=== PATIENT | male | born 1955 | race Caucasian/White ===

== ENCOUNTER 2022-11-19 12:57 | Inpatient (IN) | payer BC ==
[~2022-11-19] VITALS: Ht 177.8 cm; Wt 120.5 kg
[2022-11-19] VITALS (15 sets, daily range): BP systolic 91–141; BP diastolic 40–115
[2022-11-19] MEDS ORDERED: octreotide 100mcg/1 ml ampule IV ONE (13:20)
[2022-11-19] MEDS ORDERED: octreotide inj. 1,250 MCG in normal saline 250ml IV soln 250 ML IV SCH (13:20)
[2022-11-19] MEDS ORDERED: normal saline 1000ml 1,000 ML IV ONE ×2 (13:25)
[2022-11-19] MEDS ORDERED: IDARUCIZUMAB 2.5 GM/50 ML IV SCH (13:30)
[2022-11-19] MEDS ORDERED: ondansetron/PF 4mg/2ml inj IV ONE (13:35)
[2022-11-19 13:45] LABS: BASOPHILS % (AUTO) 0.1 % (0-1); EOSINOPHILS % (AUTO) 0.2 % (0-6); LYMPHOCYTES # (AUTO) 0.9 X10'3 (1.1-4.8); MEAN CORPUSCULAR HEMOGLOBIN 35.1 PG (27.0-31.0); MEAN CORPUSCULAR VOLUME 106.3 FL (78-98); MEAN PLATELET VOLUME 6.6 FL (7.4-10.4); MONOCYTES # (AUTO) 1.1 X10'3 (0-0.9); MONOCYTES % (AUTO) 9.1 % (2-12); NEUTROPHILS # (AUTO) 9.6 X10'3 (1.8-7.7); NEUTROPHILS % (AUTO) 82.6 % (42-75); PLATELET COUNT 202 X10'3 (140-440); RED BLOOD COUNT 1.76 X10'6 (4.70-6.10); RED CELL DISTRIBUTION WIDTH 17.4 % (11.5-14.5); WHITE BLOOD COUNT 11.6 X10'3 (4.5-11.0)
[2022-11-19 13:48] LABS: HEMATOCRIT 18.7 % (42.0-52.0); HEMOGLOBIN 6.2 g/dl (14.0-17.9)
[2022-11-19] MEDS ORDERED: octreotide inj. 1,250 MCG in normal saline 250ml IV soln 243.75 ML IV SCH (13:51)
--- NOTE | 2022-11-19 13:59 | NUR ---
ECHO AT BEDSIDE, JON SELLERS IV AT BEDSIDE ULTRASOUND.
[2022-11-19] MEDS: IDARUCIZUMAB 2.5 GM/50 ML IV SCH ×2 (14:01→14:10)
[2022-11-19 14:03] LABS: ALANINE AMINOTRANSFERASE 70 U/L (12-78); ALBUMIN 1.9 G/DL (3.4-5.0); ALKALINE PHOSPHATASE 173 IU/L (46-116); ANION GAP 8 (8-16); ASPARTATE AMINO TRANSFERASE 237 U/L (10-37); BILIRUBIN,TOTAL 4.1 MG/DL (0.1-1.0); BLOOD UREA NITROGEN 81 MG/DL (7-18); BUN/CREATININE RATIO 38.8 (10.0-20.0); CALCIUM 8.2 MG/DL (8.5-10.1); CHLORIDE 104 MMOL/L (99-107); CREATININE 2.09 MG/DL (0.60-1.10); GLUCOSE 125 MG/DL (70-104); POTASSIUM 4.9 MMOL/L (3.5-5.1); SODIUM 137 MMOL/L (135-145); TOTAL CARBON DIOXIDE 25.2 MMOL/L (24-32); eGFR 32 ML/MIN
[2022-11-19 14:07] LABS: ALBUMIN/GLOBULIN RATIO 0.5 (1.1-1.5); TOTAL PROTEIN 5.6 G/DL (6.4-8.2)
[2022-11-19] MEDS ORDERED: fentaNYL/PF 50MCG/1 ML 2ML syringe ONE (14:17)
[2022-11-19] MEDS ORDERED: LIDOcaine Viscous 15ml cup ONE ×2 (14:18→16:49)
[2022-11-19] MEDS ORDERED: MIDAZolam 1 MG/ML 5ML VIAL ONE (14:18)
--- NOTE | 2022-11-19 14:30 | NUR ---
PT TAKEN TO GI LAB AT THIS TIME. BLOOD CONSENT COPY GIVEN TO RN AND NOTIFIED THAT FIRST UNIT OF BLOOD IS READY FOR PT. RN STATES THAT THEY WILL BEGIN BLOOD IN GI LAB.
[2022-11-19] MEDS ORDERED: haloperidol lactate 5mg/ml inj IM PRN (15:35)
[2022-11-19] MEDS ORDERED: mag hydrox/Alum hydrox/simeth 30ml oral suspension PO PRN (15:35)
[2022-11-19] MEDS ORDERED: haloperidol 5mg tablet PO PRN (15:35)
[2022-11-19] MEDS ORDERED: acetaminophen 325mg tablet PO PRN (15:35)
[2022-11-19] MEDS ORDERED: HYDROcodone/acetaminophen 10/325mg tab PO PRN (15:35)
[2022-11-19] MEDS ORDERED: HYDROcodone/acetaminophen 5mg/325mg tablet PO PRN (15:35)
[2022-11-19] MEDS ORDERED: ondansetron/PF 4mg/2ml inj IV PRN (15:35)
[2022-11-19] MEDS ORDERED: potassium Cl 40MEQ/1/2NS 520ml 520 ML IV PRN (15:35)
[2022-11-19] MEDS ORDERED: magnesium 4gm in 100ml NS 100 ML IV PRN (15:35)
[2022-11-19] MEDS ORDERED: potassium Cl 20 mEq SR tablet PO PRN ×2 (15:35)
[2022-11-19] MEDS: pantoprazole 40MG/NS 100ML BAG 100 ML IV SCH ×2 (16:00→21:28)
[2022-11-19] MEDS ORDERED: pantoprazole 40MG/NS 100ML BAG 100 ML IV SCH (16:00)
[2022-11-19] MEDS ORDERED: phytonadione inj. 10 MG in normal saline 100ml IV soln 100 ML IV STA (16:04)
[2022-11-19] MEDS ORDERED: LISI10TA27 PO (17:24)
[2022-11-19] MEDS ORDERED: ALLO100T PO (17:24)
[2022-11-19] MEDS ORDERED: AMIO200T61 PO (17:24)
[2022-11-19] MEDS ORDERED: DABI150C PO (17:24)
[2022-11-19] MEDS ORDERED: FURO40TA4 PO (17:24)
[2022-11-19] MEDS ORDERED: ALBU17AE26 IH (17:24)
[2022-11-19] MEDS ORDERED: IPRA3AMP31 NEB (17:24)
[2022-11-19] MEDS ORDERED: POTA-207 PO (17:24)
[2022-11-19] MEDS ORDERED: IBUP-1984 PO (17:24)
[2022-11-19] MEDS ORDERED: octreotide inj. 500 MCG in normal saline 100ml IV soln 97.5 ML IV SCH (17:25)
--- NOTE | 2022-11-19 17:53 | NUR ---
PT JUST RETURNED TO ED RM 1 FROM GI LAB. PT IS ALERT AND ORIENTED. VSS. STILL PENDING 1 UNIT OF BLOOD. WILL CONTINUE TO MOITOR.
--- NOTE | 2022-11-19 19:48 | NUR ---
Patient in room ED 1. I have received report from LUIS Wren and had the opportunity to ask questions and assume patient care.
[2022-11-19] MEDS ORDERED: docusate sod 100mg capsule PO SCH (20:00)
[2022-11-19] MEDS: K and/or MAG REPLACEMENT MC SCH (20:00)
[2022-11-19] MEDS: thiamine 100mg tablet PO SCH (21:29)
[2022-11-20 00:12] LABS: URINE AMPHETAMINE SCREEN NEGATIVE (Neg); URINE BARBITUATE SCREEN NEGATIVE (Neg); URINE BENZODIAZEPINES SCREEN POSITIVE (Neg); URINE CANNABINOID SCREEN NEGATIVE (Neg); URINE COCAINE SCREEN NEGATIVE (Neg); URINE METHADONE SCREEN NEGATIVE (Neg); URINE OPIATE SCREEN NEGATIVE (Neg); URINE PHENCYCLIDINE SCREEN NEGATIVE (Neg)
[2022-11-20 00:43] LABS: HEMATOCRIT 22.3 % (42.0-52.0); HEMOGLOBIN 7.7 g/dl (14.0-17.9); MEAN CORPUSCULAR HGB CONC 34.6 g/dL (33.0-36.5); MEAN CORPUSCULAR VOLUME 98.5 FL (78-98); MEAN PLATELET VOLUME 6.8 FL (7.4-10.4); PLATELET COUNT 182 X10'3 (140-440); RED BLOOD COUNT 2.27 X10'6 (4.70-6.10); RED CELL DISTRIBUTION WIDTH 21.9 % (11.5-14.5); WHITE BLOOD COUNT 9.5 X10'3 (4.5-11.0)
[2022-11-20 02:00] VITALS: BP 96/38
[2022-11-20] MEDS: pantoprazole 40MG/NS 100ML BAG 100 ML IV SCH ×5 (02:35→20:51)
[2022-11-20 03:39] LABS: CLARITY,URINE CLEAR (Clear); GLUCOSE, URINE NEGATIVE (Neg); KETONES,URINE NEGATIVE (Neg); LEUKOCYTE ESTERASE ,URINE NEGATIVE (Neg); NITRITES, URINE NEGATIVE (Neg); OCCULT BLOOD,URINE NEGATIVE (Neg); PH,URINE 6.5 (4.8-8.0); PROTEIN,URINE NEGATIVE (Neg)
[2022-11-20 04:03] LABS: COLOR,URINE DARK YELLOW (Yellow); UA COLLECTION TYPE NON-SPECIFIED
[2022-11-20 06:00] VITALS: BP 104/46
--- NOTE | 2022-11-20 06:43 | NUR ---
Problems reprioritized. Patient report given, questions answered & plan of care reviewed with LUIS Phelps.
[2022-11-20 06:50] LABS: BASOPHILS % (AUTO) 0.2 % (0-1); EOSINOPHILS # (AUTO) 0.1 X10'3 (0-0.9); EOSINOPHILS % (AUTO) 0.6 % (0-6); LYMPHOCYTES # (AUTO) 0.8 X10'3 (1.1-4.8); LYMPHOCYTES % (AUTO) 9.5 % (21-51); MEAN CORPUSCULAR HEMOGLOBIN 34.6 PG (27.0-31.0); MEAN CORPUSCULAR HGB CONC 34.6 g/dL (33.0-36.5); MEAN CORPUSCULAR VOLUME 99.9 FL (78-98); MEAN PLATELET VOLUME 6.8 FL (7.4-10.4); MONOCYTES # (AUTO) 0.8 X10'3 (0-0.9); MONOCYTES % (AUTO) 8.8 % (2-12); NEUTROPHILS % (AUTO) 80.9 % (42-75); PLATELET COUNT 176 X10'3 (140-440); RED CELL DISTRIBUTION WIDTH 22.2 % (11.5-14.5); WHITE BLOOD COUNT 8.6 X10'3 (4.5-11.0)
--- NOTE | 2022-11-20 06:52 | NUR ---
Patient in room ORTHO 4017. I have received report from Nicole and had the opportunity to ask questions and assume patient care.
[2022-11-20 06:58] LABS: ALANINE AMINOTRANSFERASE 60 U/L (12-78); ALBUMIN 1.9 G/DL (3.4-5.0); ALKALINE PHOSPHATASE 160 IU/L (46-116); ANION GAP 7 (8-16); ASPARTATE AMINO TRANSFERASE 166 U/L (10-37); BILIRUBIN,TOTAL 4.5 MG/DL (0.1-1.0); BLOOD UREA NITROGEN 71 MG/DL (7-18); BUN/CREATININE RATIO 39.9 (10.0-20.0); CALCIUM 8.4 MG/DL (8.5-10.1); CHLORIDE 107 MMOL/L (99-107); CREATININE 1.78 MG/DL (0.60-1.10); GLUCOSE 115 MG/DL (70-104); LIPASE 712 U/L (73-393); MAGNESIUM 2.1 MG/DL (1.5-2.4); POTASSIUM 4.8 MMOL/L (3.5-5.1); SODIUM 139 MMOL/L (135-145); TOTAL CARBON DIOXIDE 25.1 MMOL/L (24-32); eGFR 38 ML/MIN
[2022-11-20 07:00] LABS: ALBUMIN/GLOBULIN RATIO 0.5 (1.1-1.5); PHOSPHORUS 3.9 MG/DL (2.3-4.5); TOTAL PROTEIN 5.8 G/DL (6.4-8.2)
[2022-11-20] MEDS ORDERED: furosemide 40mg tablet PO SCH (08:00)
[2022-11-20] MEDS ORDERED: lisinopril 10 MG tablet PO SCH (08:00)
[2022-11-20] MEDS: thiamine 100mg tablet PO SCH ×3 (08:00→20:51)
[2022-11-20] MEDS: K and/or MAG REPLACEMENT MC SCH ×2 (08:00→19:49)
[2022-11-20 08:07] LABS: ANISOCYTOSIS 3+; HYPOCHROMASIA 1+; PLATELET ESTIMATE NORMAL
[2022-11-20 08:08] LABS: POLYCHROMASIA 2+; TARGET CELLS 1+
[2022-11-20 10:00] VITALS: BP 102/52
--- NOTE | 2022-11-20 10:44 | NUR ---
Student documentation: Kim student at [facility] have reviewed and agree with all interventions,medication administration per hospital policy, and assessments performed and documented by the student.
[2022-11-20] MEDS ORDERED: furosemide 40mg/4ml inj IV ONE (12:05)
--- NOTE | 2022-11-20 13:05 | NUR ---
All meds given late, NPO status changed over the course of the morning more than twice.
[2022-11-20] MEDS: octreotide inj. 500 MCG in normal saline 100ml IV soln 97.5 ML IV SCH (13:08)
[2022-11-20] MEDS: allopurinol 100mg tablet PO SCH (13:08)
[2022-11-20] MEDS: multivitamins, therapeutics tablet PO SCH (13:08)
[2022-11-20 13:10] VITALS: BP 90/38
[2022-11-20 18:00] VITALS: BP 105/46
--- NOTE | 2022-11-20 18:03 | NUR ---
Malnutrition consult: Pt reports 14-23 lb wt loss with decreased appetite per malnutrition risk screen with RN. Pt seen at bedside, reports unknown quantity of wt loss over the last 4-5 months d/t decreased appetite with unknown etiology though does report feeling sick with SOB for about three months. Pt states UBW is 295 lbs. Unfortunately current wt is not scaled and no scaled wt hx in EMR. Patient's diet was advanced to clear liquids from NPO and pt with 100% PO intake of first meal. No visible fat or muscle wasting appreciated. Per EMR pt with no decrease in muscle strength though pt does appear weak. Pt documented with 4+ edema to bilat ankles. Pt currently lacks a minimum of two criteria for malnutrition though at a high risk given EtOH hx. Pt receiving routine Thiamine, Folic acid, and MVI. Pt denies food allergies or food preferences. Pt does report difficulty chewing and requests soft to chew chopped food once diet is advanced, d/w dietary. Pt provided with RD contact information and encouraged to reach out if needed. Will continue to follow and further monitor qualifying criteria for malnutrition. Recommendations: 1) Advance to SB6 diet as medically indicated per pt preference d/t difficulty chewing 2) Routine Thiamine, Folic acid, and MVI for EtOH 3) Bowel care per physician 4) Scaled weight this admit; subsequent weekly scaled weights Addendum: 11/20/22 at [address] Amended: Links added.
--- NOTE | 2022-11-20 18:39 | NUR ---
Problems reprioritized. Patient report given, questions answered & plan of care reviewed with Nicole.
--- NOTE | 2022-11-20 19:06 | NUR ---
Patient in room ORTHO 4017. I have received report from LUIS Phelps and had the opportunity to ask questions and assume patient care.
[2022-11-20] MEDS: LORazepam 2 mg/ml vial IV PRN (21:09)
[2022-11-21] MEDS: pantoprazole 40MG/NS 100ML BAG 100 ML IV SCH ×5 (01:55→23:17)
[2022-11-21 02:00] VITALS: BP 111/55
[2022-11-21] MEDS: LORazepam 2 mg/ml vial IV PRN ×2 (02:01→10:21)
[2022-11-21 06:00] VITALS: BP 101/55
--- NOTE | 2022-11-21 06:04 | NUR ---
Problems reprioritized. Patient report given, questions answered & plan of care reviewed with SERENITY Angel and LUIS White
--- NOTE | 2022-11-21 06:36 | NUR ---
Patient in room ORTHO 4017. I have received report from LUIS Rivera and had the opportunity to ask questions and assume patient care.
[2022-11-21] MEDS: octreotide inj. 500 MCG in normal saline 100ml IV soln 97.5 ML IV SCH (06:39)
[2022-11-21 06:55] LABS: BASOPHILS % (AUTO) 0.4 % (0-1); EOSINOPHILS # (AUTO) 0.2 X10'3 (0-0.9); EOSINOPHILS % (AUTO) 2.4 % (0-6); HEMATOCRIT 22.3 % (42.0-52.0); HEMOGLOBIN 7.5 g/dl (14.0-17.9); LYMPHOCYTES # (AUTO) 1.1 X10'3 (1.1-4.8); LYMPHOCYTES % (AUTO) 13.2 % (21-51); MEAN CORPUSCULAR HEMOGLOBIN 34.2 PG (27.0-31.0); MEAN CORPUSCULAR HGB CONC 33.6 g/dL (33.0-36.5); MEAN PLATELET VOLUME 6.8 FL (7.4-10.4); MONOCYTES # (AUTO) 0.9 X10'3 (0-0.9); MONOCYTES % (AUTO) 11.2 % (2-12); NEUTROPHILS % (AUTO) 72.8 % (42-75); PLATELET COUNT 156 X10'3 (140-440); RED BLOOD COUNT 2.19 X10'6 (4.70-6.10); RED CELL DISTRIBUTION WIDTH 22.5 % (11.5-14.5); WHITE BLOOD COUNT 8.3 X10'3 (4.5-11.0)
[2022-11-21 07:06] LABS: ALANINE AMINOTRANSFERASE 54 U/L (12-78); ALBUMIN 1.9 G/DL (3.4-5.0); ALKALINE PHOSPHATASE 143 IU/L (46-116); ANION GAP 11 (8-16); ASPARTATE AMINO TRANSFERASE 132 U/L (10-37); BILIRUBIN,TOTAL 3.9 MG/DL (0.1-1.0); BLOOD UREA NITROGEN 58 MG/DL (7-18); BUN/CREATININE RATIO 34.9 (10.0-20.0); CHLORIDE 107 MMOL/L (99-107); CREATININE 1.66 MG/DL (0.60-1.10); GLUCOSE 108 MG/DL (70-104); LIPASE 593 U/L (73-393); MAGNESIUM 1.9 MG/DL (1.5-2.4); POTASSIUM 4.6 MMOL/L (3.5-5.1); SODIUM 143 MMOL/L (135-145); TOTAL CARBON DIOXIDE 24.9 MMOL/L (24-32); eGFR 42 ML/MIN
[2022-11-21 07:11] LABS: ALBUMIN/GLOBULIN RATIO 0.5 (1.1-1.5); PHOSPHORUS 4.5 MG/DL (2.3-4.5); TOTAL PROTEIN 5.7 G/DL (6.4-8.2)
[2022-11-21] MEDS ORDERED: lisinopril 10 MG tablet PO SCH (08:00)
[2022-11-21] MEDS: K and/or MAG REPLACEMENT MC SCH ×2 (08:00→20:00)
[2022-11-21] MEDS: multivitamins, therapeutics tablet PO SCH (08:25)
[2022-11-21] MEDS: thiamine 100mg tablet PO SCH ×3 (08:25→19:51)
[2022-11-21] MEDS: allopurinol 100mg tablet PO SCH (08:25)
[2022-11-21 10:00] VITALS: BP 121/63
[2022-11-21] MEDS: lisinopril 5mg tablet PO SCH (10:21)
[2022-11-21 14:00] VITALS: BP 100/55
[2022-11-21] MEDS ORDERED: LORazepam 2 mg/ml vial IV PRN (15:35)
[2022-11-21] MEDS ORDERED: LORazepam 1 MG tablet PO PRN (15:35)
[2022-11-21 18:00] VITALS: BP 118/44
--- NOTE | 2022-11-21 18:16 | NUR ---
Problems reprioritized. Patient report given, questions answered & plan of care reviewed with SERENITY Nagel.
--- NOTE | 2022-11-21 18:17 | NUR ---
[employer] documentation: I have reviewed and agree with all interventions, assessments performed and documented by Stanley BENTON. [employer] Medication Administration: For this medication-pass time frame, all medication were reviewed, dispensed, administered and documented per hospital policy by Stanley BENTON.
[2022-11-21 22:00] VITALS: BP 123/48
[2022-11-22] MEDS: pantoprazole 40MG/NS 100ML BAG 100 ML IV SCH ×4 (02:49→16:45)
[2022-11-22] MEDS: octreotide inj. 500 MCG in normal saline 100ml IV soln 97.5 ML IV SCH ×2 (02:49→21:23)
[2022-11-22 06:00] VITALS: BP 114/51
[2022-11-22 07:24] LABS: BASOPHILS % (AUTO) 0.6 % (0-1); EOSINOPHILS # (AUTO) 0.2 X10'3 (0-0.9); EOSINOPHILS % (AUTO) 3.5 % (0-6); HEMATOCRIT 23.2 % (42.0-52.0); HEMOGLOBIN 7.7 g/dl (14.0-17.9); LYMPHOCYTES # (AUTO) 0.9 X10'3 (1.1-4.8); LYMPHOCYTES % (AUTO) 13.6 % (21-51); MEAN CORPUSCULAR HEMOGLOBIN 34.1 PG (27.0-31.0); MEAN CORPUSCULAR HGB CONC 33.2 g/dL (33.0-36.5); MEAN CORPUSCULAR VOLUME 102.9 FL (78-98); MEAN PLATELET VOLUME 6.9 FL (7.4-10.4); MONOCYTES # (AUTO) 0.8 X10'3 (0-0.9); MONOCYTES % (AUTO) 12.2 % (2-12); NEUTROPHILS # (AUTO) 4.8 X10'3 (1.8-7.7); NEUTROPHILS % (AUTO) 70.1 % (42-75); PLATELET COUNT 148 X10'3 (140-440); RED BLOOD COUNT 2.25 X10'6 (4.70-6.10); RED CELL DISTRIBUTION WIDTH 22.2 % (11.5-14.5); WHITE BLOOD COUNT 6.9 X10'3 (4.5-11.0)
[2022-11-22 07:45] LABS: ALANINE AMINOTRANSFERASE 50 U/L (12-78); ALBUMIN 1.8 G/DL (3.4-5.0); ALBUMIN/GLOBULIN RATIO 0.5 (1.1-1.5); ALKALINE PHOSPHATASE 137 IU/L (46-116); ANION GAP 6 (8-16); ASPARTATE AMINO TRANSFERASE 107 U/L (10-37); BILIRUBIN,TOTAL 4.1 MG/DL (0.1-1.0); BLOOD UREA NITROGEN 54 MG/DL (7-18); CALCIUM 7.8 MG/DL (8.5-10.1); CHLORIDE 104 MMOL/L (99-107); CREATININE 1.74 MG/DL (0.60-1.10); GLUCOSE 92 MG/DL (70-104); LIPASE 792 U/L (73-393); MAGNESIUM 1.9 MG/DL (1.5-2.4); PHOSPHORUS 4.2 MG/DL (2.3-4.5); POTASSIUM 4.4 MMOL/L (3.5-5.1); SODIUM 135 MMOL/L (135-145); TOTAL CARBON DIOXIDE 25.3 MMOL/L (24-32); TOTAL PROTEIN 5.6 G/DL (6.4-8.2); eGFR 39 ML/MIN
[2022-11-22] MEDS: K and/or MAG REPLACEMENT MC SCH ×2 (07:45→20:00)
[2022-11-22] MEDS: thiamine 100mg tablet PO SCH ×3 (07:46→20:17)
[2022-11-22] MEDS: allopurinol 100mg tablet PO SCH (07:46)
[2022-11-22] MEDS: multivitamins, therapeutics tablet PO SCH (07:46)
[2022-11-22] MEDS: lisinopril 5mg tablet PO SCH (07:46)
[2022-11-22 10:00] VITALS: BP 119/44
--- NOTE | 2022-11-22 12:21 | NUR ---
Per EMR pt with a low Aman of 11. Pt documented with bilat ankles 4+ edema though no wounds identified. Pt currently with 100% PO intake on a clear liquid diet. Will continue to follow. Addendum: 11/22/22 at [address] Amended: Links added.
--- NOTE | 2022-11-22 14:08 | NUR ---
PRESSURE ULCER EDUCATION: DEFINITION: A pressure ulcer is an area of skin that breaks down when you stay in one position too long. The constant pressure against the skin reduces the blood flow to that area and the affected tissue dies. CAUSES: "Being bedridden or in a wheelchair "Fragile skin "Having a chronic condition, such as diabetes or vascular disease "Inability to move certain parts of your body without assistance "Older age "Incontinence of urine or stool SYMPTOMS: "A reddened area that DOES NOT turn white when pressed on - this can be the beginning of a pressure ulcer "A blister, deep sore or a crater - these can be advanced pressure ulcers FIRST AID: "Relieve the pressure on this area "Keep the area clean and dry "Call your primary doctor if you see any of the above symptoms "DO NOT massage the area "DO NOT use a donut shaped or ring shaped pillow- these actually interfere with the blood flow and cause complications PREVENTION: "Check for pressure ulcers everyday "Change position at least every two hours to relieve pressure "Use items that help relieve pressure- pillows, sheepskin, foam padding, and powders. "Keep skin clean and dry "Eat healthy well balanced meals "Exercise daily IF YOU SEE ANY OF THESE SYMPTOMS WHILE IN THE HOSPITAL - TELL YOUR NURSE IMMEDIATELY. IF YOU SEE ANY OF THESE SYMPTOMS WHILE AT HOME OR HAVE ANY QUESTIONS OR CONCERNS ABOUT PRESSURE ULCERS - CALL YOUR PRIMARY DOCTOR IMMEDIATELY. Addendum: 11/22/22 at 1408 by Yeimy Garnett RN Amended: Links added.
--- NOTE | 2022-11-22 15:01 | NUR ---
Received order for consult. Met with patient in regards to substance use and to see if patient was interested in resources for treatment options. Patient has resources at home. He feels that he has enough support and this has scared him enough to where he will not drink again he said.
[2022-11-22 18:00] VITALS: BP 126/54
--- NOTE | 2022-11-22 18:08 | NUR ---
Problems reprioritized. Patient report given, questions answered & plan of care reviewed with Robe BENTON.
--- NOTE | 2022-11-22 20:00 | NUR ---
Agree with Bri Méndez LVN Physical assessment.
[2022-11-22 22:00] VITALS: BP 111/37
[2022-11-23] MEDS: pantoprazole 40MG/NS 100ML BAG 100 ML IV SCH ×6 (01:00→23:13)
[2022-11-23 02:00] VITALS: BP 117/45
[2022-11-23 06:00] VITALS: BP 115/47
--- NOTE | 2022-11-23 06:52 | NUR ---
Patient in room ORTHO 4017. I have received report from Robe and had the opportunity to ask questions and assume patient care.
[2022-11-23 08:00] VITALS: BP 125/89
[2022-11-23] MEDS: K and/or MAG REPLACEMENT MC SCH ×2 (08:00→19:30)
[2022-11-23] MEDS: multivitamins, therapeutics tablet PO SCH (08:24)
[2022-11-23] MEDS: thiamine 100mg tablet PO SCH ×3 (08:25→21:04)
[2022-11-23] MEDS: lisinopril 5mg tablet PO SCH (08:25)
[2022-11-23] MEDS: allopurinol 100mg tablet PO SCH (08:26)
[2022-11-23 09:19] LABS: BASOPHILS % (AUTO) 0.5 % (0-1); EOSINOPHILS # (AUTO) 0.3 X10'3 (0-0.9); HEMATOCRIT 24.8 % (42.0-52.0); HEMOGLOBIN 8.2 g/dl (14.0-17.9); LYMPHOCYTES # (AUTO) 0.7 X10'3 (1.1-4.8); LYMPHOCYTES % (AUTO) 8.7 % (21-51); MEAN CORPUSCULAR HEMOGLOBIN 33.8 PG (27.0-31.0); MEAN CORPUSCULAR VOLUME 102.4 FL (78-98); MEAN PLATELET VOLUME 7.1 FL (7.4-10.4); MONOCYTES # (AUTO) 1.1 X10'3 (0-0.9); MONOCYTES % (AUTO) 12.8 % (2-12); NEUTROPHILS # (AUTO) 6.4 X10'3 (1.8-7.7); PLATELET COUNT 165 X10'3 (140-440); RED BLOOD COUNT 2.42 X10'6 (4.70-6.10); RED CELL DISTRIBUTION WIDTH 21.9 % (11.5-14.5); WHITE BLOOD COUNT 8.6 X10'3 (4.5-11.0)
[2022-11-23 09:51] LABS: ALANINE AMINOTRANSFERASE 53 U/L (12-78); ALBUMIN 1.6 G/DL (3.4-5.0); ALBUMIN/GLOBULIN RATIO 0.4 (1.1-1.5); ALKALINE PHOSPHATASE 148 IU/L (46-116); ANION GAP 11 (8-16); ASPARTATE AMINO TRANSFERASE 115 U/L (10-37); BILIRUBIN,TOTAL 5.2 MG/DL (0.1-1.0); BLOOD UREA NITROGEN 46 MG/DL (7-18); BUN/CREATININE RATIO 29.3 (10.0-20.0); CALCIUM 8.4 MG/DL (8.5-10.1); CHLORIDE 102 MMOL/L (99-107); CREATININE 1.57 MG/DL (0.60-1.10); GLUCOSE 97 MG/DL (70-104); LIPASE 937 U/L (73-393); MAGNESIUM 2.1 MG/DL (1.5-2.4); PHOSPHORUS 3.9 MG/DL (2.3-4.5); POTASSIUM 4.4 MMOL/L (3.5-5.1); SODIUM 131 MMOL/L (135-145); TOTAL CARBON DIOXIDE 18.4 MMOL/L (24-32); TOTAL PROTEIN 5.9 G/DL (6.4-8.2); eGFR 44 ML/MIN
[2022-11-23 10:00] VITALS: BP 118/52
--- NOTE | 2022-11-23 10:21 | NUR ---
as clinical instructor, i reviewed student nurse physical assessment of pt
--- NOTE | 2022-11-23 14:04 | NUR ---
PAGER ID: [phone] MESSAGE: [phone]:Gunnar Villalobos: Pt c/o severe pain to R knee, unable to touch it or move. Please call [phone] Received new order for xray and tramadol 50mg once for pain
[2022-11-23] MEDS ORDERED: traMADol 50MG tablet PO ONE ×2 (14:05→14:10)
[2022-11-23] MEDS ORDERED: LORazepam 2 mg/ml vial IV PRN (15:35)
[2022-11-23] MEDS ORDERED: LORazepam 1 MG tablet PO PRN (15:35)
[2022-11-23] MEDS: octreotide inj. 500 MCG in normal saline 100ml IV soln 97.5 ML IV SCH (17:53)
[2022-11-23 18:00] VITALS: BP 122/58
--- NOTE | 2022-11-23 18:42 | NUR ---
Problems reprioritized. Patient report given, questions answered & plan of care reviewed with Vanessa SMITH.
[2022-11-23 22:00] VITALS: BP 132/47
[2022-11-24] MEDS: pantoprazole 40MG/NS 100ML BAG 100 ML IV SCH ×2 (04:00→08:48)
[2022-11-24 06:00] VITALS: BP 119/48
--- NOTE | 2022-11-24 06:20 | NUR ---
Patient in room ORTHO 4017. I have received report from Aneta Carter Rn and had the opportunity to ask questions and assume patient care.
[2022-11-24 06:59] LABS: BASOPHILS % (AUTO) 0.5 % (0-1); EOSINOPHILS # (AUTO) 0.3 X10'3 (0-0.9); EOSINOPHILS % (AUTO) 2.6 % (0-6); HEMATOCRIT 24.7 % (42.0-52.0); HEMOGLOBIN 8.3 g/dl (14.0-17.9); LYMPHOCYTES # (AUTO) 0.9 X10'3 (1.1-4.8); LYMPHOCYTES % (AUTO) 8.7 % (21-51); MEAN CORPUSCULAR HGB CONC 33.5 g/dL (33.0-36.5); MEAN CORPUSCULAR VOLUME 104.6 FL (78-98); MEAN PLATELET VOLUME 7.4 FL (7.4-10.4); MONOCYTES # (AUTO) 1.6 X10'3 (0-0.9); MONOCYTES % (AUTO) 16.3 % (2-12); NEUTROPHILS # (AUTO) 7.1 X10'3 (1.8-7.7); NEUTROPHILS % (AUTO) 71.9 % (42-75); PLATELET COUNT 149 X10'3 (140-440); RED BLOOD COUNT 2.36 X10'6 (4.70-6.10); RED CELL DISTRIBUTION WIDTH 21.6 % (11.5-14.5); WHITE BLOOD COUNT 9.9 X10'3 (4.5-11.0)
[2022-11-24 07:41] LABS: PLATELET ESTIMATE NORMAL; TOTAL CELLS COUNTED 100
[2022-11-24 07:42] LABS: ANISOCYTOSIS 3+
[2022-11-24] MEDS: K and/or MAG REPLACEMENT MC SCH ×2 (08:00→19:45)
[2022-11-24] MEDS: allopurinol 100mg tablet PO SCH (08:10)
[2022-11-24] MEDS: thiamine 100mg tablet PO SCH ×3 (08:10→20:15)
[2022-11-24] MEDS: folic acid 1mg tablet PO SCH (08:10)
[2022-11-24] MEDS: multivitamins, therapeutics tablet PO SCH (08:10)
[2022-11-24] MEDS: lisinopril 5mg tablet PO SCH (08:12)
[2022-11-24 09:00] LABS: ANION GAP 6 (8-16); BILIRUBIN,TOTAL 5.7 MG/DL (0.1-1.0); BLOOD UREA NITROGEN 39 MG/DL (7-18); BUN/CREATININE RATIO 23.9 (10.0-20.0); CALCIUM 8.2 MG/DL (8.5-10.1); CHLORIDE 103 MMOL/L (99-107); CREATININE 1.63 MG/DL (0.60-1.10); GLUCOSE 108 MG/DL (70-104); MAGNESIUM 1.9 MG/DL (1.5-2.4); POTASSIUM 4.6 MMOL/L (3.5-5.1); SODIUM 134 MMOL/L (135-145); TOTAL CARBON DIOXIDE 24.9 MMOL/L (24-32); eGFR 43 ML/MIN
[2022-11-24 09:01] LABS: ALANINE AMINOTRANSFERASE 61 U/L (12-78); ALBUMIN 1.9 G/DL (3.4-5.0); ALKALINE PHOSPHATASE 158 IU/L (46-116); ASPARTATE AMINO TRANSFERASE 111 U/L (10-37); LIPASE 778 U/L (73-393)
[2022-11-24 09:06] LABS: ALBUMIN/GLOBULIN RATIO 0.5 (1.1-1.5); PHOSPHORUS 3.6 MG/DL (2.3-4.5); TOTAL PROTEIN 5.9 G/DL (6.4-8.2)
[2022-11-24] MEDS: octreotide inj. 500 MCG in normal saline 100ml IV soln 97.5 ML IV SCH (09:42)
[2022-11-24] MEDS: traMADol 50MG tablet PO PRN ×2 (13:34→22:13)
[2022-11-24 18:00] VITALS: BP 93/50
--- NOTE | 2022-11-24 18:20 | NUR ---
Received report from Pauly BENTON.
--- NOTE | 2022-11-24 18:36 | NUR ---
[employer] documentation: I have reviewed and agree with all interventions, assessments performed and documented by Leann BENTON .
[2022-11-24 18:37] VITALS: BP 102/48
--- NOTE | 2022-11-24 18:37 | NUR ---
Problems reprioritized. Patient report given, questions answered & plan of care reviewed with Vanessa Carter RN.
--- NOTE | 2022-11-24 19:15 | NUR ---
Report given to Samy SMITH.
[2022-11-24] MEDS: pantoprazole 40mg Tablet.DR PO SCH (20:15)
[2022-11-24 22:00] VITALS: BP 122/75
--- NOTE | 2022-11-24 22:50 | NUR ---
Student documentation: I have reviewed interventions, assessments performed and documented by Rosalina CALHOUN [facility].
[2022-11-25 02:00] VITALS: BP 122/45
[2022-11-25 06:00] VITALS: BP 125/50
[2022-11-25 06:28] LABS: BASOPHILS # (AUTO) 0.1 X10'3 (0-0.2); BASOPHILS % (AUTO) 0.6 % (0-1); EOSINOPHILS # (AUTO) 0.3 X10'3 (0-0.9); HEMATOCRIT 23.2 % (42.0-52.0); HEMOGLOBIN 7.7 g/dl (14.0-17.9); LYMPHOCYTES # (AUTO) 1.1 X10'3 (1.1-4.8); LYMPHOCYTES % (AUTO) 10.9 % (21-51); MEAN CORPUSCULAR HEMOGLOBIN 34.6 PG (27.0-31.0); MEAN CORPUSCULAR HGB CONC 33.4 g/dL (33.0-36.5); MEAN CORPUSCULAR VOLUME 103.5 FL (78-98); MEAN PLATELET VOLUME 7.5 FL (7.4-10.4); MONOCYTES # (AUTO) 1.8 X10'3 (0-0.9); NEUTROPHILS # (AUTO) 7.1 X10'3 (1.8-7.7); NEUTROPHILS % (AUTO) 68.5 % (42-75); PLATELET COUNT 170 X10'3 (140-440); RED BLOOD COUNT 2.24 X10'6 (4.70-6.10); RED CELL DISTRIBUTION WIDTH 21.1 % (11.5-14.5); WHITE BLOOD COUNT 10.4 X10'3 (4.5-11.0)
--- NOTE | 2022-11-25 06:30 | NUR ---
Patient in room ORTHO 4017. I have received report from Samy SMITH and had the opportunity to ask questions and assume patient care.
[2022-11-25 06:42] LABS: ALANINE AMINOTRANSFERASE 62 U/L (12-78); ALBUMIN 1.7 G/DL (3.4-5.0); ALKALINE PHOSPHATASE 150 IU/L (46-116); ANION GAP 6 (8-16); ASPARTATE AMINO TRANSFERASE 94 U/L (10-37); BILIRUBIN,TOTAL 5.3 MG/DL (0.1-1.0); BLOOD UREA NITROGEN 41 MG/DL (7-18); BUN/CREATININE RATIO 21.2 (10.0-20.0); CALCIUM 8.3 MG/DL (8.5-10.1); CHLORIDE 103 MMOL/L (99-107); CREATININE 1.93 MG/DL (0.60-1.10); GLUCOSE 99 MG/DL (70-104); POTASSIUM 4.5 MMOL/L (3.5-5.1); SODIUM 134 MMOL/L (135-145); TOTAL CARBON DIOXIDE 24.7 MMOL/L (24-32); eGFR 35 ML/MIN
[2022-11-25 06:44] LABS: ALBUMIN/GLOBULIN RATIO 0.4 (1.1-1.5); TOTAL PROTEIN 5.7 G/DL (6.4-8.2)
[2022-11-25] MEDS: K and/or MAG REPLACEMENT MC SCH ×2 (07:01→18:37)
[2022-11-25] MEDS: multivitamins, therapeutics tablet PO SCH (08:33)
[2022-11-25] MEDS: thiamine 100mg tablet PO SCH ×3 (08:33→20:26)
[2022-11-25] MEDS: folic acid 1mg tablet PO SCH (08:33)
[2022-11-25] MEDS: pantoprazole 40mg Tablet.DR PO SCH ×2 (08:33→20:26)
[2022-11-25] MEDS: allopurinol 100mg tablet PO SCH (08:33)
[2022-11-25] MEDS: lisinopril 5mg tablet PO SCH (08:34)
--- NOTE | 2022-11-25 11:01 | NUR ---
Patient in room ORTHO 4017. I have received report from Pauly BENTON and had the opportunity to ask questions and assume patient care.
--- NOTE | 2022-11-25 11:06 | NUR ---
Problems reprioritized. Patient report given, questions answered & plan of care reviewed with Gena BENTON.
[2022-11-25] MEDS: traMADol 50MG tablet PO PRN (11:08)
--- NOTE | 2022-11-25 12:00 | NUR ---
[employer] documentation: I have reviewed and agree with all interventions, assessments performed and documented by Pauly Hastings LVN.
--- NOTE | 2022-11-25 12:33 | NUR ---
Initial: Pt admit DX UGIB secondary to cirrhosis, etoh w/ tremors and DT's drinks 250-500ml vodka/day, acute renal failure, transaminitis, and CHF per EMR. Pt remains on clear liquids since admit PO 100% avg meals though not meeting needs given nature of restrictive diet. Given 5 days poor nutrition status w/ mild weakness and BLE 3+/BUE 1+ edemas pt meets non-severe malnutrition criteria-MD notified. RD d/w RN diet advancement to regular if MD agreeable; at this time pt would benefit from Ensure Clear TIDWM to assist meeting-MD notified. Pt remains on thiamine, folic acid, and MVI for etoh hx w/ LBM 4/5 per EMR. Will monitor for diet advancement and further nutrition intervention needs this admit. Recommendations: 1) Advance to SB6/regular diet as medically indicated per pt preference d/t difficulty chewing and poor nutrition status 2) Ensure Clear TIDWM while on clear liquids restriction; pending physician verification in EMR 3) Monitor for diet advancement and ONS adjustment needs 4) Routine Thiamine, Folic acid, and MVI for EtOH 5) Bowel care per physician 6) Scaled weight this admit; subsequent weekly scaled weights Addendum: 11/25/22 at [address] Amended: Links added.
[2022-11-25] MEDS: furosemide 20 MG/2 ML vial IV SCH (12:37)
[2022-11-25] MEDS: NUT.TX.IMPAIRED DIGEST FXN (Ensure Clear) 237 ML PO SCH ×2 (13:00→18:11)
--- NOTE | 2022-11-25 14:09 | NUR ---
[employer] documentation: I have reviewed and agree with all interventions, assessments performed and documented by Gena Alvarez LVN .
--- NOTE | 2022-11-25 18:00 | NUR ---
Report received from Gena BENTON
--- NOTE | 2022-11-25 18:14 | NUR ---
Problems reprioritized. Patient report given, questions answered & plan of care reviewed with Nicole SMITH and Yeimy SMITH.
[2022-11-25 18:52] VITALS: BP 144/81
[2022-11-25 22:28] VITALS: BP 132/52
[2022-11-26 01:49] VITALS: BP 124/62
--- NOTE | 2022-11-26 05:30 | NUR ---
Problems reprioritized. Patient report given, questions answered & plan of care reviewed with Esme SMITH.
--- NOTE | 2022-11-26 06:45 | NUR ---
Patient in room ORTHO 4017. I have received report from Marisa SMITH and had the opportunity to ask questions and assume patient care.
[2022-11-26 07:00] VITALS: BP 118/55
[2022-11-26 07:22] LABS: BASOPHILS # (AUTO) 0.1 X10'3 (0-0.2); BASOPHILS % (AUTO) 0.9 % (0-1); EOSINOPHILS # (AUTO) 0.4 X10'3 (0-0.9); EOSINOPHILS % (AUTO) 3.7 % (0-6); HEMATOCRIT 24.9 % (42.0-52.0); LYMPHOCYTES % (AUTO) 10.4 % (21-51); MEAN CORPUSCULAR HEMOGLOBIN 33.4 PG (27.0-31.0); MEAN CORPUSCULAR HGB CONC 32.2 g/dL (33.0-36.5); MEAN CORPUSCULAR VOLUME 103.7 FL (78-98); MEAN PLATELET VOLUME 7.6 FL (7.4-10.4); MONOCYTES # (AUTO) 1.4 X10'3 (0-0.9); MONOCYTES % (AUTO) 14.2 % (2-12); NEUTROPHILS # (AUTO) 6.8 X10'3 (1.8-7.7); NEUTROPHILS % (AUTO) 70.8 % (42-75); PLATELET COUNT 206 X10'3 (140-440); RED BLOOD COUNT 2.41 X10'6 (4.70-6.10); RED CELL DISTRIBUTION WIDTH 20.2 % (11.5-14.5); WHITE BLOOD COUNT 9.6 X10'3 (4.5-11.0)
[2022-11-26 07:25] LABS: ALANINE AMINOTRANSFERASE 67 U/L (12-78); ALBUMIN 1.8 G/DL (3.4-5.0); ALKALINE PHOSPHATASE 168 IU/L (46-116); ANION GAP 5 (8-16); ASPARTATE AMINO TRANSFERASE 97 U/L (10-37); BLOOD UREA NITROGEN 45 MG/DL (7-18); BUN/CREATININE RATIO 18.9 (10.0-20.0); CALCIUM 8.4 MG/DL (8.5-10.1); CHLORIDE 102 MMOL/L (99-107); CREATININE 2.38 MG/DL (0.60-1.10); GLUCOSE 90 MG/DL (70-104); POTASSIUM 4.6 MMOL/L (3.5-5.1); SODIUM 133 MMOL/L (135-145); TOTAL CARBON DIOXIDE 25.7 MMOL/L (24-32); eGFR 27 ML/MIN
[2022-11-26 07:33] LABS: ALBUMIN/GLOBULIN RATIO 0.4 (1.1-1.5); TOTAL PROTEIN 6.1 G/DL (6.4-8.2)
[2022-11-26] MEDS: NUT.TX.IMPAIRED DIGEST FXN (Ensure Clear) 237 ML PO SCH ×3 (08:00→18:00)
[2022-11-26] MEDS: K and/or MAG REPLACEMENT MC SCH ×2 (08:00→18:57)
[2022-11-26 08:47] LABS: ANISOCYTOSIS 3+; HYPOCHROMASIA 1+; PLATELET ESTIMATE NORMAL
[2022-11-26 08:48] LABS: POLYCHROMASIA FEW; TARGET CELLS FEW
[2022-11-26] MEDS: allopurinol 100mg tablet PO SCH (08:53)
[2022-11-26] MEDS: multivitamins, therapeutics tablet PO SCH (08:53)
[2022-11-26] MEDS: thiamine 100mg tablet PO SCH ×3 (08:53→19:57)
[2022-11-26] MEDS: folic acid 1mg tablet PO SCH (08:53)
[2022-11-26] MEDS: lisinopril 5mg tablet PO SCH (08:53)
[2022-11-26] MEDS: pantoprazole 40mg Tablet.DR PO SCH ×2 (08:53→19:57)
[2022-11-26] MEDS: furosemide 20 MG/2 ML vial IV SCH (08:59)
[2022-11-26 10:00] VITALS: BP 117/67
--- NOTE | 2022-11-26 10:19 | NUR ---
After review I agree with the Physical Assessment charted by LUIS Joseph. Addendum: 11/26/22 at 1020 by Priya Dotson RN Amended: Links added.
[2022-11-26 14:00] VITALS: BP 90/57
[2022-11-26 18:00] VITALS: BP 104/39
--- NOTE | 2022-11-26 18:22 | NUR ---
Problems reprioritized. Patient report given, questions answered & plan of care reviewed with Marisa SMITH.
--- NOTE | 2022-11-26 18:30 | NUR ---
Patient in room ORTHO 4017. I have received report from LUIS Powers and had the opportunity to ask questions and assume patient care.
[2022-11-26 22:00] VITALS: BP 120/41
--- NOTE | 2022-11-27 01:00 | NUR ---
Patient in room ORTHO 4017. I have received report from Nicole SMITH and had the opportunity to ask questions and assume patient care.
--- NOTE | 2022-11-27 01:00 | NUR ---
Problems reprioritized. Patient report given, questions answered & plan of care reviewed with LUIS Benitez and LUIS Cunningham.
--- NOTE | 2022-11-27 03:25 | NUR ---
Agree with Clarence Sun RN's assessment and reviewed the medications and process plans with her.
--- NOTE | 2022-11-27 05:19 | NUR ---
Problems reprioritized. Patient report given, questions answered & plan of care reviewed with Pancho Benson RN.
[2022-11-27 06:00] VITALS: BP 113/59
--- NOTE | 2022-11-27 06:24 | NUR ---
Problems reprioritized. Patient report given, questions answered & plan of care reviewed with Pancho SMITH.
[2022-11-27 06:28] LABS: BASOPHILS # (AUTO) 0.1 X10'3 (0-0.2); BASOPHILS % (AUTO) 0.8 % (0-1); EOSINOPHILS # (AUTO) 0.4 X10'3 (0-0.9); HEMATOCRIT 24.8 % (42.0-52.0); HEMOGLOBIN 8.2 g/dl (14.0-17.9); LYMPHOCYTES # (AUTO) 1.1 X10'3 (1.1-4.8); LYMPHOCYTES % (AUTO) 11.1 % (21-51); MEAN CORPUSCULAR VOLUME 103.1 FL (78-98); MEAN PLATELET VOLUME 7.4 FL (7.4-10.4); MONOCYTES # (AUTO) 1.3 X10'3 (0-0.9); NEUTROPHILS # (AUTO) 6.7 X10'3 (1.8-7.7); NEUTROPHILS % (AUTO) 70.1 % (42-75); PLATELET COUNT 214 X10'3 (140-440); RED BLOOD COUNT 2.41 X10'6 (4.70-6.10); RED CELL DISTRIBUTION WIDTH 20.2 % (11.5-14.5); WHITE BLOOD COUNT 9.5 X10'3 (4.5-11.0)
[2022-11-27 06:41] LABS: ALANINE AMINOTRANSFERASE 83 U/L (12-78); ALBUMIN 1.8 G/DL (3.4-5.0); ALBUMIN/GLOBULIN RATIO 0.4 (1.1-1.5); ALKALINE PHOSPHATASE 191 IU/L (46-116); ANION GAP 8 (8-16); ASPARTATE AMINO TRANSFERASE 124 U/L (10-37); BILIRUBIN,TOTAL 4.4 MG/DL (0.1-1.0); BLOOD UREA NITROGEN 51 MG/DL (7-18); BUN/CREATININE RATIO 20.2 (10.0-20.0); CALCIUM 8.6 MG/DL (8.5-10.1); CHLORIDE 100 MMOL/L (99-107); CREATININE 2.52 MG/DL (0.60-1.10); GLUCOSE 98 MG/DL (70-104); POTASSIUM 4.7 MMOL/L (3.5-5.1); SODIUM 132 MMOL/L (135-145); TOTAL CARBON DIOXIDE 24.3 MMOL/L (24-32); TOTAL PROTEIN 6.2 G/DL (6.4-8.2); eGFR 26 ML/MIN
[2022-11-27] MEDS: folic acid 1mg tablet PO SCH (07:42)
[2022-11-27] MEDS: multivitamins, therapeutics tablet PO SCH (07:42)
[2022-11-27] MEDS: pantoprazole 40mg Tablet.DR PO SCH (07:42)
[2022-11-27] MEDS: furosemide 20 MG/2 ML vial IV SCH (07:42)
[2022-11-27] MEDS: lisinopril 5mg tablet PO SCH (07:43)
[2022-11-27] MEDS: thiamine 100mg tablet PO SCH (07:44)
[2022-11-27] MEDS: allopurinol 100mg tablet PO SCH (07:44)
[2022-11-27 07:48] LABS: ANISOCYTOSIS 3+; PLATELET ESTIMATE NORMAL; TOTAL CELLS COUNTED 100
[2022-11-27 07:49] LABS: POLYCHROMASIA FEW; TARGET CELLS FEW
[2022-11-27] MEDS: NUT.TX.IMPAIRED DIGEST FXN (Ensure Clear) 237 ML PO SCH ×2 (07:52→13:00)
[2022-11-27] MEDS: K and/or MAG REPLACEMENT MC SCH (08:00)
[2022-11-27] MEDS: traMADol 50MG tablet PO PRN (09:03)
[2022-11-27 10:00] VITALS: BP 115/50
== END 2022-11-27 14:30 | disposition home or self-care (01) | DRG 377 ==
LOC: ER 12:57 → ED HOLD 15:44 → ORTHO 4S 20:14
PROVIDERS: ADMIT Family Medicine; ATTEND Family Medicine
PROC: 30233N1 Transfusion of Nonautologous Red Blood Cells into Peripheral Vein, Percutaneous Approach (ICD-10-PCS; principal; 2022-11-19)
PROC: 0DJ08ZZ Inspection of Upper Intestinal Tract, Via Natural or Artificial Opening Endoscopic (ICD-10-PCS; 2022-11-19)
DX: K29.71 Gastritis, unspecified, with bleeding (principal); N17.0 Acute kidney failure with tubular necrosis; D68.9 Coagulation defect, unspecified; E46 Unspecified protein-calorie malnutrition; D62 Acute posthemorrhagic anemia; K70.30 Alcoholic cirrhosis of liver without ascites; I85.00 Esophageal varices without bleeding; K92.0 Hematemesis; K92.1 Melena; I50.9 Heart failure, unspecified; E03.9 Hypothyroidism, unspecified; F10.20 Alcohol dependence, uncomplicated; I48.0 Paroxysmal atrial fibrillation; Z68.38 Body mass index [BMI] 38.0-38.9, adult; I86.4 Gastric varices; N18.9 Chronic kidney disease, unspecified; Z96.643 Presence of artificial hip joint, bilateral; Z79.01 Long term (current) use of anticoagulants; Z80.9 Family history of malignant neoplasm, unspecified; Z82.49 Family history of ischemic heart disease and other diseases of the circulatory system
CPT/HCPCS: 36415; 36430; 43235; 71045; 73564; 80053; 80305; 81003; 82948; 83690; 83735; 84100; 85007; 85008; 85025; 85027; 85610; 86885; 86900; 86901; 86920; 87081; 87088; 93005; 93306; 96361; 96365; 96368; 96375; 97110; 97116; 97161; 97530; 99152; 99285; A4615; A4620; A6209; A6212; A6250; A6258; C9113; G0378; J1940; J2060; J2250; J2354; J2405; J3010; J3430; J3490; J7030; J7050; J9211; P9016